=== PATIENT | female | born 1970 | race Caucasian/White ===

== ENCOUNTER 2017-10-12 12:15 | Emergency (ER) | payer MEDICAID, OTHER ==
--- NOTE | 2017-10-12 12:34 | UC ---
Complaint Female HPI - History Of Current Complaint Chief Complaint: UCGU Stated Complaint: FLANK PAIN Time Seen by Provider: 10/12/17 12:34 Hx Last Menstrual Period: hyster Pain Intensity: 5 PMH/Surg Hx/FS Hx/Imm Hx - Surgical History Surgical History: Yes Surgery Procedure, Year, and Place: hyster,ta,neck - Social History Alcohol Use: Rare Substance Use Type: None Smoking Status (MU): Light Every Day Tobacco Smoker Physical Exam Vital Signs: Initial Vital Signs Temp 97.8 F 10/12/17 12:25 Pulse 78 10/12/17 12:25 Resp 15 10/12/17 12:25 BP 153/95 10/12/17 12:25 Pulse Ox 98 10/12/17 12:25 Discharge - Discharge Plan Referrals: Mel Valdez MD [Primary Care Provider] -
--- NOTE | 2017-10-12 12:53 | UC ---
Complaint Female HPI - HPI Summary HPI Summary: ONSET YESTERDAY OF LEFT FLANK PAIN RADIATING TO LEFT GROIN. NO URINARY SYMPTOMS. NO FEVER. DOES HAVE SOME MILD INTERMITTENT NAUSEA AND HAS A HISTORY OF KIDNEY STONES. - History Of Current Complaint Chief Complaint: UCGU Stated Complaint: FLANK PAIN Time Seen by Provider: 10/12/17 12:34 Hx Obtained From: Patient Hx Last Menstrual Period: hyster Onset/Duration: Sudden Onset, Lasting Days - 1 DAY, Still Present Timing: Constant Severity Initially: Moderate Severity Currently: Moderate Pain Intensity: 5 Pain Scale Used: 0-10 Numeric Character: Sharp Aggravating Factor(s): Nothing Alleviating Factor(s): Nothing Associated Signs And Symptoms: Positive: Back Pain, Nausea. Negative: Fever - Allergies/Home Medications Allergies/Adverse Reactions: Allergies Allergy/AdvReac Type Severity Reaction Status Date / Time No Known Allergies Allergy Verified 10/12/17 14:18 Home Medications: Home Medications Acetaminophen [Tylenol] 500 mg PO DAILY 10/12/17 [History Confirmed 10/12/17] Ibuprofen 400 mg PO ONCE 10/12/17 [History Confirmed 10/12/17] raNITIdine HCl [Ranitidine HCl] 150 mg PO DAILY 10/12/17 [History Confirmed ] PMH/Surg Hx/FS Hx/Imm Hx GI/ History: Kidney Stones - Surgical History Surgical History: Yes Surgery Procedure, Year, and Place: hyster,ta,neck - Family History Known Family History: Positive: Hypertension - Social History Alcohol Use: Rare Substance Use Type: None Smoking Status (MU): Light Every Day Tobacco Smoker Review of Systems Constitutional: Negative Respiratory: Negative Cardiovascular: Negative Gastrointestinal: Nausea, Other - LEFT FLANK PAIN Genitourinary: Negative All Other Systems Reviewed And Are Negative: Yes Physical Exam Triage Information Reviewed: Yes Appearance: Well-Appearing, No Pain Distress, Well-Nourished Vital Signs: Initial Vital Signs Temp 97.8 F 10/12/17 12:25 Pulse 78 10/12/17 12:25 Resp 15 10/12/17 12:25 BP 153/95 10/12/17 12:25 Pulse Ox 98 10/12/17 12:25 Vital Signs Reviewed: Yes Eyes: Positive: Conjunctiva Clear ENT: Positive: Hearing grossly normal Neck: Positive: Supple Respiratory: Positive: No respiratory distress, No accessory muscle use Cardiovascular: Positive: Pulses Normal Abdomen Description: Positive: Soft. Negative: CVA Tenderness (R), CVA Tenderness (L), Distended, Guarding Musculoskeletal: Positive: No Edema Neurological: Positive: Alert Psychological: Positive: Age Appropriate Behavior Skin: Negative: rashes Diagnostics - Radiology CT ABD/PELVIS W/O CONTRAST Xray Interpretation: Positive (See Comments) - COMPLEX LEFT ADNEXAL CYST OR SUSPICIOUS HYDROSALPINX. RIGHT ADNEXAL CYST. SUGGEST FOLLOW-UP ULTRASONOGRAPHY. NO CT EVIDENCE OF UROLITHIASIS. Radiology Interpretation Completed By: Radiologist Complaint Female Dx - Course Course Of Treatment: PT OFFERED TRANSPORT TO THE ED BY AMBULANCE BUT DECLINES. ADVISED THAT BY NOT TRAVELING IN A MONITORED SETTING SHE COULD BE RISKING WORSENING OF HER CONDITION THAT COULD POSE A THREAT TO HER LIFE, HEALTH AND MEDICAL SAFETY. SHE VERBALIZES UNDERSTANDING AND CONTINUES TO DECLINE AMBULANCE TRANSFER. - Differential Dx/Diagnosis Provider Diagnoses: COMPLEX LEFT ADNEXAL CYST OR SUSPICIOUS HYDROSALPINX. RIGHT ADNEXAL CYST. Discharge - Sign-Out/Discharge Documenting (check all that apply): Patient Departure - Discharge Plan Condition: Stable Disposition: TRANS HIGHER L OF CARE FAC Patient Education Materials: Ovarian Cyst (ED) Referrals: Mel Valdez MD [Primary Care Provider] - If Needed Additional Instructions: CT SCAN TODAY SHOWS COMPLEX LEFT ADNEXAL CYST OR SUSPICIOUS HYDROSALPINX AND RIGHT ADNEXAL CYST. NO KIDNEY STONE. RADIOLOGY SUGGESTS FOLLOW-UP ULTRASONOGRAPHY. GIVEN THESE FINDINGS AND YOUR LEVEL OF DISCOMFORT YOU NEED TO GO TO THE ED FOR FURTHER EVALUATION. YOU HAVE DECLINED TRANSFER TO THE ED BY AMBULANCE. BE ADVISED THAT BY NOT TRAVELING IN A MONITORED SETTING YOU COULD BE RISKING WORSENING OF YOUR CONDITION THAT COULD POSE A THREAT TO YOUR LIFE, HEALTH AND MEDICAL SAFETY. - Billing Disposition and Condition Condition: STABLE Disposition: Trans Higher Lvl of Care Fac
--- NOTE | 2017-10-12 14:05 | RAD ---
INDICATION: Left flank pain COMPARISON: None TECHNIQUE: Noncontrast axial source images were acquired from the level hemidiaphragms to the symphysis pubis as part of CT imaging for renal stone. Lung bases: The lung bases are clear. Liver: There is hepatomegaly with hepatic steatosis. Noncontrast imaging shows no evidence of a hepatic mass or ductal dilatation. Gallbladder: Cholecystectomy. Spleen: The spleen is normal in size. There are splenic granulomas. Pancreas: Noncontrast imaging shows no pancreatic mass or ductal dilitation. Adrenal glands: No masses are identified. Kidneys/Bladder: There is no evidence of nephrolithiasis or CT evidence of hydronephrosis. Noncontrast imaging shows no evidence of a renal mass. The bladder is unremarkable.. Adenopathy: There is no evidence of intraperitoneal or retroperitoneal adenopathy. Evaluation is limited without oral contrast. Fluid collections: There are no free or localized fluid collections. Vessels: The aorta and iliac vessels are normal in caliber. There are no significant atherosclerotic changes. The IVC appears normal Pelvic organs: The uterus is absent. There is a mildly complex 3.8 cm left adnexal cystic entity and a 2.7 cm right adnexal cyst these are the transverse dimension measurements. The left adnexal abnormality may represent hydrosalpinx. Suggest pelvic sonography. GI tract: Evaluation of the bowel is limited without oral contrast. The stomach, small bowel, and lower GI tract appear grossly normal. There are no obstructive findings. The appendix is visualized and appears normal. Soft tissues: No soft tissue abnormalities of the extraperitoneal abdomen or pelvis are identified. Osseous structures: There are no acute osseous findings. IMPRESSION: COMPLEX LEFT ADNEXAL CYST OR SUSPICIOUS HYDROSALPINX. RIGHT ADNEXAL CYST. SUGGEST FOLLOW-UP ULTRASONOGRAPHY. NO CT EVIDENCE OF UROLITHIASIS.
[2017-10-12 14:24] VITALS: BP 142/76
== END 2017-10-12 14:22 | disposition short-term general hospital (02) ==
LOC: UCEAST 12:15
DX: N85.8 Other specified noninflammatory disorders of uterus (principal); F17.200 Nicotine dependence, unspecified, uncomplicated
CPT/HCPCS: 74176; 81003; 99202; G0463

== ENCOUNTER 2017-10-12 15:02 | Emergency (ER) | payer OTHER ==
--- NOTE | 2017-10-12 17:39 | RAD ---
INDICATION: Adnexal cysts COMPARISON: CT same date TECHNIQUE: Longitudinal and transverse transvaginal scans of the pelvis were obtained. Transvaginal imaging was initially attempted but due to patient size and transabdominal examinations were acquired. The patient declined to stay to have the bladder filled. FINDINGS: The left ovary measures 4.8 x 3.7 x 3.7 cm. There are no findings of torsion. The remainder the examination is incomplete IMPRESSION: LIMITED EXAMINATION. NO EVIDENCE OF LEFT OVARIAN TORSION.
[2017-10-12 17:42] VITALS: BP 153/71
== END 2017-10-12 18:08 | disposition left against medical advice (07) ==
LOC: ED 15:02
DX: N83.209 Unspecified ovarian cyst, unspecified side (principal); Z53.21 Procedure and treatment not carried out due to patient leaving prior to being seen by health care provider
CPT/HCPCS: 76830; 76856; 99282

== ENCOUNTER 2018-04-02 09:27 | Day surgery (SDC) | payer OTHER ==
[~2018-04-02 09:27] MED LIST: Buffered Lidocaine 0.9% SYRIN* 5 ML/SYR SYRINGE INTRADERM ONE; Dexamethasone TAB* 4 MG PO ONE; DiMENhydriNATE IV* 50 MG/ML VIAL IV PUSH PRN; Famotidine IV* 10 MG/ML 2 ML (20 mg) IV ONE; Lactated Ringers 1000 ML Bag* 1,000 ML IV SCH; Lidocaine 1% INJ* 10 MG/ML 30 ML SDV ONE; Naloxone* 0.4 MG/ML 1 ML VIAL IV PRN; Ondansetron TAB* 4 MG PO ONE; PROCHLORPERAZINE INJ 5 MG/ML 2 ML VIAL IV PRN; fentaNYL* 50 MCG/ML 2 ML VIAL (100 MCG VIAL) IV PRN; oxyCODONE/Acetamin 5/325 MG* TAB PO PRN
[2018-04-02] MEDS ORDERED: Lidocaine 1% INJ* 10 MG/ML 30 ML SDV ONE (10:29)
[2018-04-02 11:36] VITALS: BP 133/73
--- NOTE | 2018-04-02 15:44 | OP ---
CC: Dr. Valadez OPERATIVE REPORT: DATE OF OPERATION: 04/02/18 DATE OF : 70 SURGEON: Loli Valadez MD GENERAL INTERNAL MEDICINE PHYSICIAN: PAOLO Johnson ANESTHESIA: Local PRE-OP DIAGNOSIS: Left hand mass POST-OP DIAGNOSIS: Left hand mass OPERATIVE PROCEDURE: Removal of left hand mass. ESTIMATED BLOOD LOSS: Zero. TOURNIQUET TIME: About 15 minutes. INDICATIONS: Kimmy is a 47-year-old female who has a painful mass in the palm of her left hand. Sh e presents for removal. DESCRIPTION OF PROCEDURE: The patient was brought to the operating room, was given a local anestheti c in the palm of her left hand with 1% plain lidocaine. The skin of her left hand and upper extremit y was prepped and draped in usual sterile fashion. The hand and forearm was exsanguinated and the to urniquet elevated to 250 mmHg. A Chevron incision was made centered over the mass. 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 It wa s carefully dissected away from the overlying skin and the underlying flexor tendon. It was adherent to the A1 rufino of the middle finger. The rufino was incised longitudinally to prevent triggering. The wound was irrigated and the skin edges reapproximated with 4-0 nylon suture. The wound was nicole ssed with Xeroform, 4x4 Webril and an Gavin wrap. The patient tolerated the procedure well, was rosy t to the recovery room in good condition. [id number]/[facility] #: [id number]
== END 2018-04-02 11:26 | disposition home or self-care (01) ==
LOC: OREAST 09:27
PROVIDERS: ATTEND Orthopaedic Surgery
DX: M72.0 Palmar fascial fibromatosis [Dupuytren] (principal); Z72.0 Tobacco use; Z85.828 Personal history of other malignant neoplasm of skin
CPT/HCPCS: 88304